=== PATIENT | female | born 2000 | race Caucasian/White ===

== ENCOUNTER 2024-06-11 06:24 | Emergency (ER) | payer MEDICAID, OTHER ==
[2024-06-11 06:45] LABS: BASOPHILS PERCENT AUTO 0.4 % (0.0-1.0); EOSINOPHILS ABSOLUTE AUTO 0.2 K/mm3 (0.0-0.4); EOSINOPHILS PERCENT AUTO 2.7 % (0.0-6.0); HEMATOCRIT 46.3 % (37.0-47.0); IMMATURE GRAN ABSOLUTE AUTO 0.04 K/mm3 (0.00-0.05); IMMATURE GRAN PERCENT AUTO 0.6 % (0.0-0.4); LYMPHOCYTES ABSOLUTE AUTO 2.4 K/mm3 (1.0-4.8); LYMPHOCYTES PERCENT AUTO 33.2 % (24.0-44.0); MEAN CORPUSCULAR HEMOGLOBIN 33.6 pg (28.0-32.0); MEAN CORPUSCULAR HGB CONC 34.6 g/dl (32.0-36.0); MEAN CORPUSCULAR VOLUME 97.3 fl (83.0-99.0); MEAN PLATELET VOLUME 8.3 fl (9.4-12.3); MONOCYTES ABSOLUTE AUTO 0.5 K/mm3 (0.0-0.8); MONOCYTES PERCENT AUTO 7.2 % (0.0-8.0); NEUTROPHILS PERCENT AUTO 55.9 % (41.0-71.0); PLATELET COUNT,PLT 269 K/mm3 (150-400); RED BLOOD CELL COUNT 4.76 M/mm3 (4.10-5.30); WHITE BLOOD CELL COUNT,WBC 7.11 K/mm3 (3.9-11.3)
[2024-06-11] MEDS: Iopamidol 612 MG/ML 30 ML SDV IVPUSH ONE (06:53)
[2024-06-11] MEDS: Sodium Chloride 0.9% 10 ML Syringe FLUSH ONE (06:53)
[2024-06-11 07:06] LABS: A/G RATIO 1.1 (1-2); ALBUMIN 4.1 g/dl (3.4-5.0); ANION GAP 15.9 (5-15); BILIRUBIN TOTAL 0.2 mg/dL (0.2-1.0); EST CRCL DRUG DOSING (CG) 86.54 mL/min; POTASSIUM,K 3.9 mEq/L (3.5-5.1); PROTEIN TOTAL,TP 7.9 g/dl (6.4-8.2)
[2024-06-11] MEDS: Sodium Chloride 0.9% 1,000 ML IV ONE (07:51)
== END 2024-06-11 08:47 | disposition home or self-care (01) ==
LOC: JD.ED 06:24
DX: Z04.1 Encounter for examination and observation following transport accident (principal); F10.90 Alcohol use, unspecified, uncomplicated; J45.909 Unspecified asthma, uncomplicated; Z79.899 Other long term (current) drug therapy; Y90.1 Blood alcohol level of 20-39 mg/100 ml; V49.50XA Passenger injured in collision with unspecified motor vehicles in traffic accident, initial encounter; Y92.410 Unspecified street and highway as the place of occurrence of the external cause
CPT/HCPCS: 36415; 70450; 71260; 72125; 72128; 72131; 74177; 80053; 80307; 83690; 84703; 85025; 96360; 99284; J3490; J7030; Q9967

== ENCOUNTER 2024-11-26 18:38 | Emergency (ER) | payer MEDICAID ==
[2024-11-26] MEDS: Magnesium Citrate Solution 296 ML Bottle PO ONE (20:04)
== END 2024-11-26 20:12 | disposition home or self-care (01) ==
LOC: JD.ED 18:38
DX: O99.612 Diseases of the digestive system complicating pregnancy, second trimester (principal); K59.00 Constipation, unspecified; J45.909 Unspecified asthma, uncomplicated; Z88.8 Allergy status to other drugs, medicaments and biological substances; Z79.899 Other long term (current) drug therapy; Z3A.25 25 weeks gestation of pregnancy
CPT/HCPCS: 99283; A9270-GY

== ENCOUNTER 2024-12-24 20:39 | Observation (INO) | payer MEDICAID ==
[2024-12-24] MEDS: Alum Hydrox/Mag Hydrox/Simeth 30 ML, Lidocaine 2% 15 ML PO ONE (21:26)
[2024-12-24 21:31] LABS: BASOPHILS PERCENT AUTO 0.2 % (0.0-1.0); EOSINOPHILS ABSOLUTE AUTO 0.1 K/mm3 (0.0-0.4); EOSINOPHILS PERCENT AUTO 1.4 % (0.0-6.0); HEMATOCRIT 37.4 % (37.0-47.0); HEMOGLOBIN 12.6 gm/dl (12.0-16.0); IMMATURE GRAN ABSOLUTE AUTO 0.06 K/mm3 (0.00-0.05); IMMATURE GRAN PERCENT AUTO 0.6 % (0.0-0.4); LYMPHOCYTES ABSOLUTE AUTO 2.3 K/mm3 (1.0-4.8); LYMPHOCYTES PERCENT AUTO 22.2 % (24.0-44.0); MEAN CORPUSCULAR HEMOGLOBIN 32.4 pg (28.0-32.0); MEAN CORPUSCULAR HGB CONC 33.7 g/dl (32.0-36.0); MEAN CORPUSCULAR VOLUME 96.1 fl (83.0-99.0); MEAN PLATELET VOLUME 8.4 fl (9.4-12.3); MONOCYTES ABSOLUTE AUTO 0.7 K/mm3 (0.0-0.8); MONOCYTES PERCENT AUTO 7.2 % (0.0-8.0); NEUTROPHILS ABSOLUTE AUTO 6.9 K/mm3 (1.8-7.7); NEUTROPHILS PERCENT AUTO 68.4 % (41.0-71.0); PLATELET COUNT,PLT 241 K/mm3 (150-400); RED BLOOD CELL COUNT 3.89 M/mm3 (4.10-5.30); WHITE BLOOD CELL COUNT,WBC 10.13 K/mm3 (3.9-11.3)
[2024-12-24 21:33] LABS: APPEARANCE,URINE CLOUDY (Clear); BILIRUBIN,URINE NEGATIVE (Negative); COLOR,URINE LIGHT YELLOW (Yellow); GLUCOSE,URINE NEGATIVE (Negative); KETONES,URINE NEGATIVE (Negative); LEUKOCYTE ESTERASE,URINE 1+ (Negative); NITRITE,URINE NEGATIVE (Negative); OCCULT BLOOD,URINE NEGATIVE (Negative); PROTEIN,URINE NEGATIVE (Negative); UROBILINOGEN,URINE 0.2 (0.2-1.0)
[2024-12-24 21:42] LABS: BACTERIA,URINE MANY /hpf (FEW); MUCUS,URINE RARE /hpf (FEW); RBC,URINE 0-5 /hpf (0-5); WBC,URINE 20-30 /hpf (0-5)
[2024-12-24 21:56] LABS: A/G RATIO 0.7 (1-2); ALBUMIN 2.9 g/dl (3.4-5.0); ANION GAP 16.5 (5-15); BILIRUBIN TOTAL 0.3 mg/dL (0.2-1.0); BUN/CREATININE RATIO 8.3 (14-18); CALCIUM 8.8 mg/dL (8.5-10.1); CREATININE 0.6 mg/dL (0.55-1.02); EST CRCL DRUG DOSING (CG) 148.36 mL/min; POTASSIUM,K 3.5 mEq/L (3.5-5.1); PROTEIN TOTAL,TP 6.8 g/dl (6.4-8.2)
[2024-12-24] MEDS: Calcium Carbonate 500 MG Tab.Chew PO ONE (22:18)
== END 2024-12-24 23:04 | disposition home or self-care (01) ==
LOC: JD.OBCHECK 20:39 → JD.OB 20:43
PROVIDERS: ADMIT Obstetrics & Gynecology; ATTEND Obstetrics & Gynecology
DX: O99.891 Other specified diseases and conditions complicating pregnancy (principal); R10.13 Epigastric pain; Z3A.28 28 weeks gestation of pregnancy
CPT/HCPCS: 36415; 59025; 80053; 81001; 82150; 83690; 85025; A9270

== ENCOUNTER 2025-01-03 10:09 | Day surgery (SDC) | payer MEDICAID ==
[~2025-01-03 10:09] MED LIST: Sodium Chloride 0.9% 10 ML Syringe FLUSH PRN; Sodium Chloride 0.9% 10 ML Syringe FLUSH SCH
[2025-01-03] MEDS ORDERED: Lidocaine 2% 11 ML Jelly Filled Syringe ONE (10:13)
[2025-01-03] MEDS: Lactated Ringers 1,000 ML IV SCH (10:20)
[2025-01-03] MEDS: Citric Acid/Sodium Citrate Solution 30 ML Cup PO ONE (11:33)
[2025-01-03] MEDS: Metoclopramide 10 MG/2 ML SDV IVPUSH ONE (11:34)
[2025-01-03] MEDS: Famotidine 20 MG/2 ML SDV IVPUSH ONE (11:36)
[2025-01-03] MEDS ORDERED: propofoL 500 MG/50 ML 50 ML ONE ×2 (11:44→12:41)
[2025-01-03] MEDS ORDERED: Propofol 200 MG/20 ML SDV ONE (11:44)
[2025-01-03] MEDS ORDERED: fentaNYL 250 MCG/5 ML SDV ONE (11:44)
[2025-01-03] MEDS ORDERED: Famotidine 20 MG/2 ML SDV IVPUSH ONE (11:45)
[2025-01-03] MEDS ORDERED: dexmedeTOMIDine HCl 200 MCG/2 ML SDV ONE (11:46)
[2025-01-03] MEDS ORDERED: Dexamethasone 4 MG/ML 5 ML MDV ONE (11:46)
[2025-01-03] MEDS ORDERED: Lidocaine 1% 5 ML VIAL ONE (11:46)
[2025-01-03] MEDS ORDERED: Rocuronium 50 MG/5 ML Vial ONE (11:46)
[2025-01-03] MEDS ORDERED: Ondansetron 4 MG/2 ML SDV ONE (11:46)
[2025-01-03] MEDS ORDERED: ceFAZolin 2 GM Vial ONE (12:19)
[2025-01-03] MEDS: Bupivacaine 0.5% 30 ML SDV ONE (12:23)
[2025-01-03] MEDS: EPINEPHrine 1 MG/ML SDV ONE (12:23)
[2025-01-03] MEDS ORDERED: Lactated Ringers 1,000 ML ONE (12:42)
[2025-01-03] MEDS ORDERED: Ondansetron 4 MG/2 ML SDV IVPUSH PRN (12:46)
[2025-01-03] MEDS ORDERED: fentaNYL 100 MCG/2 ML SDV ONE (12:51)
[2025-01-03] MEDS ORDERED: Sugammadex Sodium 200 MG/2 ML VIAL IV ONE (12:59)
[2025-01-03] MEDS: fentaNYL 100 MCG/2 ML SDV IVPUSH PRN (13:33)
[2025-01-03] MEDS: Acetaminophen 325 MG Tab PO PRN (14:13)
[2025-01-03] MEDS: oxyCODONE 5 MG Tab PO PRN (14:47)
== END 2025-01-03 16:07 | disposition home or self-care (01) ==
LOC: JD.SDS 10:09
PROVIDERS: ATTEND Surgery
DX: O99.613 Diseases of the digestive system complicating pregnancy, third trimester (principal); K80.10 Calculus of gallbladder with chronic cholecystitis without obstruction; O99.513 Diseases of the respiratory system complicating pregnancy, third trimester; J45.909 Unspecified asthma, uncomplicated; Z3A.30 30 weeks gestation of pregnancy; Z91.048 Other nonmedicinal substance allergy status; Z79.899 Other long term (current) drug therapy
CPT/HCPCS: 47562; A9270; J0171; J0665; J0690; J1100; J2405; J2704; J2765; J3010; J7120; 00790; J2003; J3490